=== PATIENT | female | born 1940 | race African-American/Black ===

== ENCOUNTER 2016-05-19 07:26 | Day surgery (SDC) | payer OTHER ==
[2016-05-18 13:06] VITALS: BMI 25.9
--- NOTE | 2016-05-19 06:32 | HP ---
History & Physical Update - History History: No Change - Physical Physical: No Change - Assessment Assessment: No Change - Plan Plan: No Change
[~2016-05-19 07:26] MED LIST: CYCLOPENTOLATE HCL 1% OPHTH SOLN 2 ML BOTTLE OP SCH; MOXIFLOXACIN HCL 0.5% OPHTHALMIC 3 ML BOTTLE OP SCH; PHENYLEPHRINE 2.5% OPHTH SOLN 15 ML BOTTLE OP SCH; TOBRA 0.3%/DEXAMETH 0.1% OPHTHALMIC SUSP 2.5 ML BTL TP ONE; TROPICAMIDE 1% OPHTH SOLN 15 ML BOTTLE OP SCH
[2016-05-19 07:44] VITALS: TEMP 98
[2016-05-19] MEDS ORDERED: MOXIFLOXACIN HCL 0.5% OPHTHALMIC 3 ML BOTTLE OS ONE ×3 (08:00→08:15)
[2016-05-19] MEDS ORDERED: TROPICAMIDE 1% OPHTH SOLN 15 ML BOTTLE OS ONE ×3 (08:00→08:15)
[2016-05-19] MEDS ORDERED: CYCLOPENTOLATE HCL 1% OPHTH SOLN 2 ML BOTTLE OS ONE ×3 (08:00→08:15)
[2016-05-19] MEDS ORDERED: PHENYLEPHRINE 2.5% OPHTH SOLN 15 ML BOTTLE OS ONE ×3 (08:00→08:15)
[2016-05-19] MEDS ORDERED: TETRACAINE 0.5% OPHTH SOLN 2 ML BOTTLE OS ONE (09:22)
[2016-05-19] MEDS ORDERED: MIDAZOLAM HCL 2 MG/2 ML SINGLE DOSE VIAL ONE (09:23)
[2016-05-19] MEDS ORDERED: POVIDONE-IODINE 5% OPHTHALMIC PREP 30 ML SOLUTION OS ONE (09:28)
[2016-05-19] MEDS ORDERED: BSS (NA/CA/MG/K) BALANCED SALT SOLUTION OPHTH SOLN 15 ML BOTTLE OS ONE (09:33)
[2016-05-19] MEDS ORDERED: TRYPAN BLUE 0.5 ML DISP.SYRIN IO ONE (09:33)
[2016-05-19] MEDS ORDERED: EPINEPHrine/PF 1 MG/1 ML (1:1,000) AMPULE SQ ONE (09:33)
[2016-05-19] MEDS ORDERED: LIDOCAINE HCL 1% PRESERVATIVE FREE - 30ML VIAL IO ONE (09:33)
[2016-05-19] MEDS ORDERED: CHONDROITIN SU A/HYALUR SOD 1 KIT IO ONE (09:33)
[2016-05-19] MEDS ORDERED: TOBRA 0.3%/DEXAMETH 0.1% OPHTHALMIC SUSP 2.5 ML BTL TP ONE (09:58)
[2016-05-19 11:08] VITALS: BP 128/66; PULSE 73
--- NOTE | 2016-05-19 14:19 | OP ---
DATE OF OPERATION: 05/19/2016 SURGEON: Pritesh Cespedes MD PREOPERATIVE DIAGNOSIS: Cataract left eye. OPERATION: Phacoemulsification intraocular lens implantation left eye. POSTOPERATIVE DIAGNOSIS: Cataract left eye. ANESTHESIA: Topical. COMPLICATIONS: None. BLOOD LOSS: None. SPECIMENS: None. BRIEF HISTORY: The patient is a 75-year-old woman with a past medical history of diabetes who presented with decreased vision in the left eye down to 20/30 due to a 2+ nuclear sclerotic lens with inferior cortical spokes. After the risks, benefits, and alternatives of cataract surgery were discussed with the patient, she consented to surgery for the left eye. DESCRIPTION OF PROCEDURE: The patient was brought to the operating room and prepped and draped in the usual sterile fashion, and the eyelid speculum was inserted in the left eye. The paracentesis made in the anterior chamber was inflated with nonpreserved lidocaine. This was followed by injection of air, Trypan blue dye and Viscoat. A groove was made in the supratemporal clear cornea, which was tunneled forward with a crescent blade. The anterior chamber was entered with a 2.75 keratome. Due to the poorly dilating pupil, down to 4mm, four iris hooks were placed around the pupil in order to enlarge it and stable it. The cystotome was used to make an incision in the center of the capsule, and a continuous curvilinear capsulorrhexis was created. The lens was hydrodissected until it was found to rotate freely within the capsular bag. Phacoemulsification was then used to remove the lens in its entirety. Irrigation and aspiration was used to remove residual cortical material. The anterior chamber and capsular bag were reinflated with Provisc, and a 20.0 diopter [id number] AcrySof intraocular lens was injected into the capsular bag using Nichols injector. The lens was dialed into place using a Sinskey hook. The irrigation and aspiration was used to remove residual viscoelastic. The wound was stromally hydrated until it was found to be watertight and the iris was at an appropriate pressure. The 4 previously placed iris hooks were removed without incident. The wound was rechecked and found to be watertight, and the eye was under appropriate pressure. The eyelid speculum was removed from the eye, and Tobradex drops and a clear shield were placed over the left eye. The patient was transferred to the recovery room in stable condition and will follow up tomorrow. PRITESH CESPEDES M.D. [id number] MTDD
== END 2016-05-19 11:05 | disposition home or self-care (01) ==
LOC: JASU-SURG 07:26
PROVIDERS: ATTEND Ophthalmology
PROC: 08RK3JZ Replacement of Left Lens with Synthetic Substitute, Percutaneous Approach (ICD-10-PCS; principal; 2016-05-19 10:00)
DX: H25.12 Age-related nuclear cataract, left eye (principal); H57.04 Mydriasis

== ENCOUNTER 2016-08-18 07:38 | Day surgery (SDC) | payer OTHER ==
[2016-08-14 13:36] VITALS: BMI 25.0
--- NOTE | 2016-08-18 06:09 | HP ---
History & Physical Update - History History: No Change - Physical Physical: No Change - Assessment Assessment: No Change - Plan Plan: No Change
[~2016-08-18 07:38] MED LIST changes: +CHONDROITIN SU A/HYALUR SOD 1 KIT IO ONE; -CYCLOPENTOLATE HCL 1% OPHTH SOLN 2 ML BOTTLE OP SCH; +LIDOCAINE HCL 1% PRESERVATIVE FREE - 30ML VIAL IO ONE; -MOXIFLOXACIN HCL 0.5% OPHTHALMIC 3 ML BOTTLE OP SCH; -PHENYLEPHRINE 2.5% OPHTH SOLN 15 ML BOTTLE OP SCH; +TETRACAINE 0.5% OPHTH SOLN 2 ML BOTTLE TP ONE; -TROPICAMIDE 1% OPHTH SOLN 15 ML BOTTLE OP SCH
[2016-08-18] MEDS ORDERED: CYCLOPENTOLATE HCL 1% OPHTH SOLN 2 ML BOTTLE ONE (07:47)
[2016-08-18] MEDS ORDERED: MOXIFLOXACIN HCL 0.5% OPHTHALMIC 3 ML BOTTLE ONE (07:47)
[2016-08-18] MEDS ORDERED: TROPICAMIDE 1% OPHTH SOLN 15 ML BOTTLE ONE (07:47)
[2016-08-18] MEDS ORDERED: PHENYLEPHRINE 2.5% OPHTH SOLN 15 ML BOTTLE ONE (07:47)
[2016-08-18 07:52] VITALS: TEMP 98.3
[2016-08-18] MEDS: CYCLOPENTOLATE HCL 1% OPHTH SOLN 2 ML BOTTLE OP SCH ×2 (08:00→08:14)
[2016-08-18] MEDS: MOXIFLOXACIN HCL 0.5% OPHTHALMIC 3 ML BOTTLE OP SCH ×2 (08:00→08:14)
[2016-08-18] MEDS: TROPICAMIDE 1% OPHTH SOLN 15 ML BOTTLE OP SCH ×2 (08:00→08:14)
[2016-08-18] MEDS: PHENYLEPHRINE 2.5% OPHTH SOLN 15 ML BOTTLE OP SCH ×2 (08:00→08:14)
[2016-08-18] MEDS ORDERED: MIDAZOLAM HCL 2 MG/2 ML SINGLE DOSE VIAL ONE (08:55)
[2016-08-18] MEDS ORDERED: TETRACAINE 0.5% OPHTH SOLN 2 ML BOTTLE TP ONE (09:02)
[2016-08-18] MEDS ORDERED: LIDOCAINE HCL 1% PRESERVATIVE FREE - 30ML VIAL IO ONE (09:12)
[2016-08-18] MEDS ORDERED: CHONDROITIN SU A/HYALUR SOD 1 KIT IO ONE (09:13)
[2016-08-18] MEDS ORDERED: TOBRA 0.3%/DEXAMETH 0.1% OPHTHALMIC SUSP 2.5 ML BTL TP ONE (09:40)
[2016-08-18 10:37] VITALS: BP 130/70; PULSE 60
--- NOTE | 2016-08-18 21:33 | OP ---
DATE OF OPERATION: 08/18/2016 SURGEON: Pritesh Agarwal MD PREOPERATIVE DIAGNOSIS: Cataract, right eye. OPERATION: Phacoemulsification and intraocular lens implantation, right eye. POSTOPERATIVE DIAGNOSIS: Cataract, right eye. ANESTHESIA: Topical. COMPLICATIONS: None. BLOOD LOSS: None. SPECIMEN: None. BRIEF HISTORY: The patient is a 76-year-old woman with a past medical history of diabetes, who presented with decreased vision in the right eye down to 20/30-minus due to a 2+ nuclear sclerotic lens and inferior cortical spokes. After the risks, benefits and alternatives to cataract surgery were discussed with the patient, she consented to the surgery for the right eye. DESCRIPTION: The patient was brought to the operating room and prepped and draped in the usual sterile fashion, and an eyelid speculum was inserted in the right eye. A paracentesis was made, and the anterior chamber was inflated with nonpreserved lidocaine. This was followed by injection of Viscoat. A groove was made in the temporal clear cornea, which was tunneled forward with a crescent blade. The anterior chamber was entered with a 2.75 keratome. The cystotome was used to make an incision in the center of the capsule, and a continuous curvilinear capsulorrhexis was created; however, at this point it was noted that there was iris prolapse and constriction of the pupil down to 4 mm. At this point, 4 iris hooks were placed around the pupil in order to enlarge and stabilize it. The lens was then hydrodissected until it was found to rotate freely in the capsular bag. Phacoemulsification was then used to remove the lens in its entirety. Irrigation and aspiration was used to remove residual cortical material. The anterior chamber and capsular bag were reinflated with ProVisc, and a 21.0 diopter [id number] AcrySof intraocular lens was injected into the capsular bag using the [place] injector. The lens was dialed into place using the Sinskey hook. Irrigation and aspiration was used to remove residual viscoelastic. The wound was stromally hydrated until it was found to be watertight. The 4 previously placed iris hooks were removed from the eye without incident. The wound was rechecked and found to be watertight and the eye was in an appropriate pressure. The eyelid speculum was removed from the eye, and TobraDex drops and a clear shield were placed over the right eye. The patient was transferred to the recovery room in stable condition and will follow up tomorrow. Ana [id number]
== END 2016-08-18 10:30 | disposition home or self-care (01) ==
LOC: JASU-SURG 07:38
PROVIDERS: ATTEND Ophthalmology
PROC: 08RJ3JZ Replacement of Right Lens with Synthetic Substitute, Percutaneous Approach (ICD-10-PCS; principal; 2016-08-18 09:00)
DX: H25.11 Age-related nuclear cataract, right eye (principal); E11.9 Type 2 diabetes mellitus without complications; H21.89 Other specified disorders of iris and ciliary body

== ENCOUNTER 2016-12-08 07:31 | Emergency (ER) | payer OTHER ==
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
[2016-12-08 07:54] VITALS: TEMP 97.4; BMI 25.6
[2016-12-08] MEDS ORDERED: NAPROXEN 500 MG TABLET (FP) PO ONE (08:10)
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
[2016-12-08] MEDS ORDERED: NAPROXEN 500 MG TABLET (FP) ONE (08:32)
[2016-12-08 13:07] VITALS: BP 142/76; PULSE 68
== END 2016-12-08 10:40 | disposition home or self-care (01) ==
LOC: JER 07:31
DX: S16.1XXA Strain of muscle, fascia and tendon at neck level, initial encounter (principal); I10 Essential (primary) hypertension; Z79.4 Long term (current) use of insulin; Z79.84 Long term (current) use of oral hypoglycemic drugs; E78.00 Pure hypercholesterolemia, unspecified; F41.9 Anxiety disorder, unspecified; F41.8 Other specified anxiety disorders; F17.210 Nicotine dependence, cigarettes, uncomplicated; V73.5XXA Driver of bus injured in collision with car, pick-up truck or van in traffic accident, initial encounter; Y92.414 Local residential or business street as the place of occurrence of the external cause; Y93.89 Activity, other specified; Y99.8 Other external cause status
CPT/HCPCS: 70450-TC; 72125-TC; 99281-25

== ENCOUNTER 2018-03-15 10:47 | Day surgery (SDC) | payer OTHER ==
[2018-03-15 11:32] VITALS: BMI 23.9
[2018-03-15] MEDS ORDERED: TETRACAINE/BENZOCAINE/BUTAMBEN 20 GM SPR TP ONE (11:39)
[2018-03-15 13:43] VITALS: BP 138/66; PULSE 66; TEMP 98.3
--- NOTE | 2018-03-16 16:41 | PATH ---
Surgical Pathology Report Patient Name: SILVIA PINA [facility]. Rec. #: [id number] /Age/Gender: 1940 (Age: 77) / F Account: [id number] Location: U-ENDOSCOPY Taken: 03/14/2018 Received: 03/15/2018 Reported: 03/16/2018 Physicians: Beck Kitchen D.O. Specimen(s) Received A: DUODENAL BULB BX B: BX ANTRUM C: BX CARDIA D: BX GE JUNCTION Clinical History Abdominal pain and diarrhea Postoperative diagnosis: Antral erosion, gastritis Final Diagnosis A. DUODENAL BULB BIOPSY: DUODENAL MUCOSA WITH CHRONIC DUODENITIS. B. ANTRUM, BIOPSY: GASTRIC MUCOSA WITH REACTIVE GASTROPATHY AND FOCALLY INCREASED EOSINOPHILIC INFILTRATE IN THE LAMINA PROPRIA. IMMUNOSTAIN FOR H. PYLORI IS NEGATIVE. NEGATIVE FOR INTESTINAL METAPLASIA. C. CARDIA BIOPSY: GASTRIC MUCOSA WITH MILD CHRONIC INFLAMMATION, FOCAL DILATED GLANDS, AND FOVEOLAR HYPERPLASTIC CHANGE. IMMUNOSTAIN FOR H. PYLORI IS NEGATIVE. NEGATIVE FOR INTESTINAL METAPLASIA D. GE JUNCTION, BIOPSY: GASTROESOPHAGEAL JUNCTIONAL MUCOSA WITH REFLUX ESOPHAGITIS. NEGATIVE FOR INTESTINAL METAPLASIA Electronically Signed Vicki Tuttle M.D. Gross Description A. Received in formalin, labeled "duodenal bulb biopsy" is a rivera, irregular portion of soft tissue measuring 0.3 cm. in greatest dimension. The specimen is submitted in toto in one cassette. B. Received in formalin, labeled "antrum biopsy" are 2 rivera, irregular portions of soft tissue averaging 0.4 cm. in greatest dimension. The specimens are submitted in toto in one cassette. C. Received in formalin, labeled "cardia biopsy nodule" are 2 rivera, irregular portions of soft tissue averaging 0.4 cm. in greatest dimension. The specimens are submitted in toto in one cassette. D. Received in formalin, labeled "GE junction biopsy" are 3 rivera, irregular portions of soft tissue ranging from 0.1-0.4 cm. in greatest dimension. The specimens are submitted in toto in one cassette. 03/15/201803/15/2018
== END 2018-03-15 13:15 | disposition home or self-care (01) ==
LOC: JASU-ENDO 10:47
PROVIDERS: ATTEND Internal Medicine Gastroenterology
PROC: 0DB68ZX Excision of Stomach, Via Natural or Artificial Opening Endoscopic, Diagnostic (ICD-10-PCS; 2018-03-15)
PROC: 0DB58ZX Excision of Esophagus, Via Natural or Artificial Opening Endoscopic, Diagnostic (ICD-10-PCS; 2018-03-15)
PROC: 0DB98ZX Excision of Duodenum, Via Natural or Artificial Opening Endoscopic, Diagnostic (ICD-10-PCS; principal; 2018-03-15 11:15)
DX: K25.9 Gastric ulcer, unspecified as acute or chronic, without hemorrhage or perforation (principal); K21.9 Gastro-esophageal reflux disease without esophagitis; K29.80 Duodenitis without bleeding
CPT/HCPCS: 82962; 88305-TC; 88342-TC

== ENCOUNTER 2018-05-19 13:44 | Emergency (ER) | payer OTHER ==
[2018-05-19 14:00] VITALS: BP 139/74; PULSE 85; TEMP 98.2; BMI 25.2
[2018-05-19 14:54] LABS: ALBUMIN 4.2 g/dl (3.4-5.0); ALK PHOS 82 U/L (45-117); ANION GAP 7 MMOL/L (8-16); BILIRUBIN,TOTAL 1.6 mg/dl (0.2-1); BLOOD UREA NITROGEN 15 mg/dl (7-18); CALCIUM 9.8 mg/dl (8.5-10); CHLORIDE 102 mmol/L (98-107); CO2 29 mmol/L (21-32); CREATININE 0.7 mg/dl (0.55-1.3); GLUCOSE,RANDOM 226 mg/dl (74-106); POTASSIUM 3.2 mmol/L (3.5-5.1); SGOT/AST 14 U/L (15-37); SGPT/ALT 13 U/L (13-61); SODIUM 138 mmol/L (136-145); TOT PROT 6.9 g/dl (6.4-8.2)
--- NOTE | 2018-05-19 14:57 | PDOC ---
History of Present Illness <Avelino Breauxfaele - Last Filed: 05/19/18 15:25> - General History Source: Patient Exam Limitations: No Limitations - History of Present Illness Initial Comments: 05/19/18 15:17 The patient is a 77-year-old female with a past medical history significant for HTN, HLD, anxiety, and DM presents to the emergency department with diarrhea with fecal incontinence secondary to DM medication. The patient reports a long- standing history of DM, for which she was placed on Metformin and glipizide. The patient reports blood sugar improvement with the medications; however, she developed diarrheal fecal incontinence. The patient reports following up with PCP about 2-4 months ago, who suggested it was secondary to the medication. The patient was then switched over to insulin and discontinued metformin and glipizide. The patient reports insulin wasnt as helpful with lower her blood sugar, reported following up with PCP about 2 days ago, who started her back on metformin and glipizide. The patient reports being compliant with the medication since yesterday morning since then she states she hasnt been good, and reports having episodes of diarrheal fecal incontinence. The patient reports her sugar level was 500 yesterday and earlier today 400. The patient reports being compliant with insulin, metformin, and glipizide today. The patient reports associated symptoms of increased thirst, denies nausea, vomiting , abdominal pain, dysuria, hematuria, frequency or urgency to urinate. Denies fever, chills or LOC. The patient reports she had an episode of a panic attack today, and reports taking a valium. Allergies: penicillins Social history: Current everyday smoker, Denies the use of alcohol or drugs. Surgical history: Cholecystectomy and Left knee arthroscopy, B/L rotator cuff. PCP: Dr. yana Corcoran. <Rosa Morales - Last Filed: 05/19/18 15:37> - General Chief Complaint: Blood Sugar Problem Stated Complaint: HIGH BLOOD SUGAR Time Seen by Provider: 05/19/18 13:50 Past History - Past Medical History Anemia: No Asthma: No Cancer: No Cardiac Disorders: No CVA: No COPD: No CHF: No Dementia: No Diabetes: Yes GI Disorders: Yes (DUODENAL POLYP, SHALLOW ULCERATIONS) Disorders: No HTN: Yes Hypercholesterolemia: Yes Liver Disease: No Psychiatric Problems: Yes (PANIC DISORDER) Seizures: No Thyroid Disease: No - Surgical History Abdominal Surgery: Yes Appendectomy: No Cardiac Surgery: No Cholecystectomy: Yes Lung Surgery: No Neurologic Surgery: No Orthopedic Surgery: Yes (LEFT KNEE ARTHROSCOPY, BILAT ROTATOR CUFF) - Suicide/Smoking/Psychosocial Hx Smoking Status: No Smoking History: Current every day smoker Have you smoked in the past 12 months: Yes Number of Cigarettes Smoked Daily: 8 Information on smoking cessation initiated: Yes 'Breaking Loose' booklet given: 03/15/18 Hx Alcohol Use: No Drug/Substance Use Hx: No Substance Use Type: Alcohol Hx Substance Use Treatment: No <Alen Breaux - Last Filed: 05/19/18 15:25> <Rosa Morales - Last Filed: 05/19/18 15:37> - Past Medical History Allergies/Adverse Reactions: Allergies Allergy/AdvReac Type Severity Reaction Status Date / Time Penicillins Allergy "RASH" Verified 05/19/18 13:46 Home Medications: Ambulatory Orders Atorvastatin Calcium [Lipitor] 10 mg PO DAILY 02/08/12 Insulin (Levemir) [Levemir Vial] 20 unit SQ BID 09/11/15 Diazepam [Valium] 10 mg PO TID PRN 03/14/18 Atenolol [Tenormin] 50 mg PO DAILY 03/15/18 Glipizide 5 mg PO BID 05/19/18 Review of Systems - Review of Systems Constitutional: No: Chills, Fever, Night Sweats, Unintentional Wgt. Loss HEENTM: No: Recent change in vision Respiratory: No: Cough, Shortness of Breath Cardiac (ROS): No: Chest Pain, Edema, Syncope ABD/GI: Yes: Diarrhea. No: Constipated, Nausea, Vomiting : No: Dysuria, Frequency, Hematuria Endocrine: Yes: Increased Thirst. No: Unexplained Weight Gain, Unexplained Weight Loss All Other Systems: Reviewed and Negative <Alen Breaux - Last Filed: 05/19/18 15:25> *Physical Exam - Vital Signs Last Vital Signs Temp Pulse Resp BP Pulse Ox 98.2 F 85 18 139/74 97 05/19/18 13:44 05/19/18 13:44 05/19/18 13:44 05/19/18 13:44 05/19/18 13:44 <Alen Breaux - Last Filed: 05/19/18 15:25> - Vital Signs Last Vital Signs Temp Pulse Resp BP Pulse Ox 98.2 F 85 18 139/74 97 05/19/18 13:44 05/19/18 13:44 05/19/18 13:44 05/19/18 13:44 05/19/18 13:44 - Physical Exam Comments: 05/19/18 15:03 GENERAL: The patient is awake, alert, and fully oriented, in no acute distress. HEAD: Normal with no signs of trauma. EYES: Pupils equal, round and reactive to light, extraocular movements intact, sclera anicteric, conjunctiva clear with no pallor. ENT: Ears normal, nares patent, oropharynx clear without exudates. Moist mucous membranes. NECK: Normal range of motion, supple without lymphadenopathy, JVD, or masses. LUNGS: Breath sounds equal, clear to auscultation bilaterally. No wheeze/ crackles. HEART: Regular rate and rhythm, normal S1 and S2 without murmur or rub. ABDOMEN: Soft/nontender/nondistended. BS wnl. No guarding or rebound. No palpable masses. No hepatosplenomegaly. EXTREMITIES: Normal range of motion, no edema. No clubbing or cyanosis. No cords, erythema, or tenderness. NEUROLOGICAL: Cranial nerves II through XII grossly intact. Normal speech, normal gait. PSYCH: Normal mood, normal affect. SKIN: Warm, Dry, normal turgor, no rashes or lesions noted. <Rosa Morales - Last Filed: 05/19/18 15:37> Heart Score/ECG Review #1 ECG reviewed & interpreted by me at: 14:24 General ECG Interpretation: Sinus Rhythm, Normal Rate (66), Normal Intervals ( qtc 425), No acute ischemic changes <Alen Breaux - Last Filed: 05/19/18 15:25> ED Treatment Course - LABORATORY CBC & Chemistry Diagram: 05/19/18 14:25 05/19/18 14:25 - ADDITIONAL ORDERS Additional order review: Laboratory Results 05/19/18 05/19/18 14:20 14:18 POC Glucometer 211 Urine Color Shannon Urine Appearance Clear Urine pH 5.0 Urine Protein Negative Urine Glucose (UA) Negative Urine Ketones Trace Urine Blood Negative Urine Nitrite Negative Urine Bilirubin 1+ H Urine Urobilinogen 1.0 Ur Leukocyte Esterase Negative 05/19/18 14:18 POC Glucometer 211 <Alen Breaux - Last Filed: 05/19/18 15:25> - LABORATORY CBC & Chemistry Diagram: 05/19/18 14:25 05/19/18 14:25 - ADDITIONAL ORDERS Additional order review: Laboratory Results 05/19/18 05/19/18 05/19/18 14:25 14:20 14:18 Sodium 138 Potassium 3.2 L Chloride 102 Carbon Dioxide 29 Anion Gap 7 L BUN 15 Creatinine 0.7 Creat Clearance w eGFR 80.93 POC Glucometer 211 Random Glucose 226 H Calcium 9.8 Total Bilirubin 1.6 H AST 14 L ALT 13 Alkaline Phosphatase 82 Total Protein 6.9 Albumin 4.2 Urine Color Shannon Urine Appearance Clear Urine pH 5.0 Urine Protein Negative Urine Glucose (UA) Negative Urine Ketones Trace Urine Blood Negative Urine Nitrite Negative Urine Bilirubin 1+ H Urine Urobilinogen 1.0 Ur Leukocyte Esterase Negative 05/19/18 14:18 POC Glucometer 211 <Rosa Morales - Last Filed: 05/19/18 15:37> Medical Decision Making - Medical Decision Making 05/19/18 14:54 77-year-old female diabetic presents requesting medication regimen readjustment. Patient has long-standing history of diabetes, historically treated with metformin/glipizide/insulin combination, but noncompliant with her insulin in the past. Sustained side effects of fecal incontinence from metformin /glipizide and so began taking insulin only at the recommendation of her recruiting coordinator. Glucose was less optimally controlled, she saw Dr. Wilson, her PCP, 2 days ago and was instructed to restart metformin/glipizide. She began having fecal incontinence again yesterday, presents here for a new diabetes regimen. Patient did take her metformin/because this morning, her glucose was over 400, it is currently 211 in the emergency department. She states she has frequent thirst at baseline, denies any polyuria/abdominal pain/vomiting, reports the nonbloody diarrhea as noted. Vital signs are within normal limits Patient is well-appearing and ambulating in the emergency Department Abdominal exam is nonfocal She is well-hydrated without jaundice or pallor 77-year-old female presents here for recommendations on diabetes medications given persistent side effect profile. Well-appearing and hemodynamically stable without red flags on history or physical exam. Another component of the visit includes the patient's anxiety, she admits to having a panic attack earlier and taking Valium prior to arrival. Check electrolytes, give IV fluid hydration We'll need to discuss with Dr. Wilson regarding adjustments to medications, she has not been seen by an incubator operator in the past. 05/19/18 15:19 cbc normal. chem with glucose over 200 but normal AG 7, slight hypo-K 3.2 which was repleted. UA without ketones or infection. Received hydration, will discuss d/c plan with Dr. Corcoran. 05/19/18 15:[address] Corcoran, recommends d/c metformin but continue glipizide/ insulin as previously prescribed. he will see in office in 2 weeks to monitor glucose levels. Pt agrees with plan, understands return criteria. <Alen Breaux - Last Filed: 05/19/18 15:25> - Medical Decision Making 05/19/18 15:37 Phone call: Call placed to Dr. Andressa Corcoran at 3:20 pm. Case discussed with Dr. Andressa Corcoran at 3:24 pm. <Rosa Morales - Last Filed: 05/19/18 15:37> *DC/Admit/Observation/Transfer <Alen Breaux - Last Filed: 05/19/18 15:25> - Attestations Scribe Attestion: 05/19/18 15:04 Documentation prepared by Rosa Morales, acting as medical imaging specialist for Alen Breaux MD. <Rosa Morales - Last Filed: 05/19/18 15:37> Diagnosis at time of Disposition: Hyperglycemia - Discharge Dispostion Disposition: HOME Condition at time of disposition: Stable - Referrals Referrals: Yana Corcoran MD [Primary Care Provider] - - Patient Instructions Printed Discharge Instructions: DI for Hyperglycemia -- Adult Additional Instructions: Activity as tolerated. Stay hydrated. Blood tests, an EKG, and a urinalysis today showed no acute abnormalities other than a slightly elevated blood sugar level. Your Potassium was a little low, so we gave you a pill to replace it. We discussed your case with Dr. Corcoran, and the plan is to STOP THE METFORMIN BUT CONTINUE THE GLIPIZIDE AND LEVEMIR PREVIOUSLY PRESCRIBED. Continue your other medications as previously prescribed by your physician. You should follow up with your primary doctor in 1-2 weeks regarding today's emergency department visit and to check how your blood sugar is doing on the new regimen. You should also continue to check it daily yourself. Return to the emergency department for any new or concerning symptoms, particularly persistent vomiting or diarrhea, abdominal pain or fevers or chills , confusion or lightheadedness, uncontrollable blood glucose levels. - Post Discharge Activity
[2018-05-19] MEDS ORDERED: SODIUM CHLORIDE 1,000 ML IV ONE (14:59)
[2018-05-19 15:09] LABS: HEMATOCRIT 47.9 % (32.4-45.2); MCH 29.6 pg (25.7-33.7); MCHC 33.4 g/dl (32.0-36.0); MEAN CELL VOLUME 88.7 fl (80-96); MEAN PLT VOLUME 12.6 fl (7.5-11.1); PLATELET COUNT 202 K/MM3 (134-434); RDW 13.1 % (11.6-15.6); WHITE BLOOD COUNT 6.3 K/mm3 (4.0-10.8)
[2018-05-19 15:10] LABS: ADD RBC MORPHOLOGY YES
[2018-05-19] MEDS ORDERED: POTASSIUM CHLORIDE TABS 20 MEQ TABLET.ER (FP) PO ONE ×2 (15:18→15:24)
[2018-05-19 15:44] LABS: PLATELET ESTIMATE ADEQUATE
--- NOTE | 2018-05-20 10:11 | EKG ---
Test Reason : Blood Pressure : / mmHG Vent. Rate : 066 BPM Atrial Rate : 066 BPM P-R Int : 176 ms QRS Dur : 082 ms QT Int : 406 ms P-R-T Axes : 040 031 042 degrees QTc Int : 425 ms NORMAL SINUS RHYTHM POSSIBLE LEFT ATRIAL ENLARGEMENT BORDERLINE ECG WHEN COMPARED WITH ECG OF 24-JUL-2009 11:09, SINUS RHYTHM HAS REPLACED JUNCTIONAL RHYTHM Confirmed by STU KAPLAN, MARCELLO ([id number]) on 05/20/2018 10:10:59 AM Referred By: NIKKI GRUBER Confirmed By:MARCELLO PERAZA MD
== END 2018-05-19 16:05 | disposition home or self-care (01) ==
LOC: SUPCPDRO 13:44 → FER 13:44
PROC: 3E0337Z Introduction of Electrolytic and Water Balance Substance into Peripheral Vein, Percutaneous Approach (ICD-10-PCS; principal; 2018-05-19)
DX: E11.65 Type 2 diabetes mellitus with hyperglycemia (principal); I10 Essential (primary) hypertension; E78.5 Hyperlipidemia, unspecified; F41.9 Anxiety disorder, unspecified
CPT/HCPCS: 36415; 80053; 81003; 82962; 85025; 93005; 99285-25; J7030

== ENCOUNTER 2019-01-13 10:17 | Emergency (ER) | payer OTHER ==
[2019-01-13 10:31] VITALS: BP 139/74; PULSE 57; TEMP 97.9; BMI 25.2
[2019-01-13] MEDS ORDERED: METOCLOPRAMIDE HCL INJECTION 10 MG/2 ML VIAL IVPB ONE (10:45)
[2019-01-13] MEDS ORDERED: SODIUM CHLORIDE 0.9% 1000 ML INFUS.BAG IV ONE (10:45)
[2019-01-13] MEDS ORDERED: ACETAMINOPHEN 1000 MG/100 ML VIAL (NON FORMULARY) IVPB ONE (10:45)
[2019-01-13] MEDS ORDERED: ACETAMINOPHEN INJECTION 100 ML IVPB ONE (10:48)
[2019-01-13] MEDS ORDERED: METOCLOPRAMIDE HCL INJECTION 10 MG/2 ML VIAL ONE (10:48)
[2019-01-13 11:17] LABS: BASO % 0.9 % (0-2.0); EOS % 2.3 % (0-4.5); HEMATOCRIT 47.3 % (32.4-45.2); HEMOGLOBIN 15.8 GM/dl (10.7-15.3); LYMPH % 45.9 % (8-40); MCH 29.4 pg (25.7-33.7); MCHC 33.4 g/dl (32.0-36.0); MEAN PLT VOLUME 11.7 fl (7.5-11.1); NEUT % 44.9 % (42.8-82.8); PLATELET COUNT 240 K/MM3 (134-434); RBC 5.38 M/mm3 (3.60-5.2); RDW 13.1 % (11.6-15.6); WHITE BLOOD COUNT 7.1 K/mm3 (4.0-10.8)
[2019-01-13 11:24] LABS: ALBUMIN 3.9 g/dl (3.4-5.0); BILIRUBIN,TOTAL 1.7 mg/dl (0.2-1); CALCIUM 9.7 mg/dl (8.5-10); CREATININE 0.6 mg/dl (0.55-1.3); POTASSIUM 3.5 mmol/L (3.5-5.1); TOT PROT 6.8 g/dl (6.4-8.2)
[2019-01-13 11:27] LABS: ADD RBC MORPHOLOGY YES
[2019-01-13 11:56] LABS: PLATELET ESTIMATE ADEQUATE
--- NOTE | 2019-01-13 12:04 | PDOC ---
History of Present Illness - General Chief Complaint: Respiratory Stated Complaint: HEADACHE COUGH Time Seen by Provider: 01/13/19 10:28 - History of Present Illness Initial Comments: 01/13/19 12:59 Vitals: Triage Vital signs reviewed General Appearance: No acute distress, well nourished well developed, Head: Atraumatic, Eyes: Pupils equal reactive round, extraocular movement intact Ears: TM's normal bilaterally; Nose: Nares patent bilaterally; no nasal congestion Throat: Posterior oropharynx without erythema, mucous membranes moist, Neck: Supple; no Nucal rigidity Chest Wall: Nontender Cardiac: Regular rate and rhythym, no murmurs, no rubs, no gallops, Lungs: Clear to auscultation bilateral, good air movement bilaterally, Abdomen: Soft, non distended, normal bowel sounds, non tender to palpation Extremities: Full range of motion to all extremities, no cyanosis, clubbing, or edema Skin: Warm and dry, no rashes or lesions, no rash, no petechiae Neuro: AOX3; cranial Nerves 2-12 grossly intact, strength intact to all extremities, sensation intact to all extremities, gait normal Psych: Normal mood, normal affect Past History - Past Medical History Allergies/Adverse Reactions: Allergies Allergy/AdvReac Type Severity Reaction Status Date / Time Penicillins Allergy "RASH" Verified 01/13/19 10:20 Home Medications: Ambulatory Orders Atorvastatin Calcium [Lipitor] 10 mg PO DAILY 02/08/12 Insulin (Levemir) [Levemir Vial] 24 unit SQ AM 09/11/15 Diazepam [Valium] 10 mg PO TID PRN 03/14/18 Atenolol/Chlorthalidone [Atenolol-Chlorthalidone 50-25] 1 each PO DAILY Insulin Detemir [Levemir Flextouch] 10 unit SQ HS 01/13/19 Anemia: No Asthma: No Cancer: No Cardiac Disorders: No CVA: No COPD: No CHF: No Dementia: No Diabetes: Yes GI Disorders: Yes (DUODENAL POLYP, SHALLOW ULCERATIONS) Disorders: No HTN: Yes Hypercholesterolemia: Yes Liver Disease: No Psychiatric Problems: Yes (PANIC DISORDER) Seizures: No Thyroid Disease: No - Surgical History Abdominal Surgery: Yes Appendectomy: No Cardiac Surgery: No Cholecystectomy: Yes Lung Surgery: No Neurologic Surgery: No Orthopedic Surgery: Yes (LEFT KNEE ARTHROSCOPY, BILAT ROTATOR CUFF) - Psycho Social/Smoking Cessation Hx Smoking Status: No Smoking History: Never smoked Have you smoked in the past 12 months: No Number of Cigarettes Smoked Daily: 8 Information on smoking cessation initiated: No 'Breaking Loose' booklet given: 05/19/18 Hx Alcohol Use: No Drug/Substance Use Hx: No Substance Use Type: Alcohol Hx Substance Use Treatment: No *Physical Exam - Vital Signs Last Vital Signs Temp Pulse Resp BP Pulse Ox 97.9 F 57 L 18 139/74 100 01/13/19 10:17 01/13/19 10:17 01/13/19 10:17 01/13/19 10:17 01/13/19 10:17 ED Treatment Course - LABORATORY CBC & Chemistry Diagram: 01/13/19 11:00 01/13/19 11:00 - ADDITIONAL ORDERS Additional order review: Laboratory Results 01/13/19 11:00 Sodium 135 L Potassium 3.5 Chloride 100 Carbon Dioxide 30 Anion Gap 5 L BUN 12.0 Creatinine 0.6 Est GFR (CKD-EPI)AfAm 100.48 Est GFR (CKD-EPI)NonAf 86.69 Random Glucose 193 H Calcium 9.7 Total Bilirubin 1.7 H AST 13 L ALT 13 Alkaline Phosphatase 73 Total Protein 6.8 Albumin 3.9 01/13/19 11:00 RBC 5.38 H MCV 88.0 MCHC 33.4 RDW 13.1 MPV 11.7 H Neutrophils % 44.9 Lymphocytes % 45.9 H Monocytes % 6.0 Eosinophils % 2.3 Basophils % 0.9 - RADIOLOGY Radiology Studies Ordered: Category Date Time Status HEAD CT WITHOUT CONTRAST [CT] Stat CT Scan 01/13/19 11:33 Ordered CHEST PA & LAT [RAD] Stat Radiology 01/13/19 10:46 Ordered - Medications Given in the ED: ED Medications Discontinued Medications Generic Name Dose Route Start Last Admin Trade Name Freq PRN Reason Stop Dose Admin Acetaminophen 1,000 mg 01/13/19 10:45 01/13/19 10:50 Ofirmev Injection - IVPB 01/13/19 10:46 1,000 mg ONCE ONE Administration Diphenhydramine HCl 25 mg 01/13/19 10:45 01/13/19 11:25 Benadryl Injection - IVPB 01/13/19 10:46 25 mg ONCE ONE Administration Metoclopramide HCl 10 mg 01/13/19 10:45 01/13/19 11:32 Reglan Injection - IVPB 01/13/19 10:46 10 mg ONCE ONE Administration Sodium Chloride 500 ml 01/13/19 10:45 01/13/19 10:45 Normal Saline - IV 01/13/19 10:46 500 ml ONCE ONE Administration Medical Decision Making - Medical Decision Making 01/13/19 13:02 Well-appearing no apparent distress with mild headache intermittent with associated mild hearing loss Patient able to carry on normal conversation grossly hearing is intact to both soft sounds on both sides equally There are no red flags on her headache history however given the combination of headache with the hearing symptomatology we will order a noncontrast head CT treat symptomatically her headache check labs and a chest x-ray Reevaluation 1 PM patient feels much better head CT with no acute pathology her laboratory analysis is unremarkable She will follow-up with her ENT doctor this week she will return to ED for any severe worsening symptoms or for any concerns. Discharge - Discharge Information Problems reviewed: Yes Clinical Impression/Diagnosis: Headache Qualifiers: Headache type: unspecified Headache chronicity pattern: episodic headache Intractability: not intractable Qualified Code(s): R51 - Headache Condition: Stable Disposition: HOME - Admission No - Follow up/Referral Referrals: Riley Jessica MD [Staff Physician] - - Patient Discharge Instructions Patient Printed Discharge Instructions: DI for Headache Additional Instructions: Follow-up with your ENT or Dr. Jessica this week. Return to the emergency department for any severe worsening symptoms or for any concerns. - Post Discharge Activity
== END 2019-01-13 13:30 | disposition home or self-care (01) ==
LOC: FER 10:17
PROC: 3E033NZ Introduction of Analgesics, Hypnotics, Sedatives into Peripheral Vein, Percutaneous Approach (ICD-10-PCS; principal; 2019-01-13)
PROC: 3E033GC Introduction of Other Therapeutic Substance into Peripheral Vein, Percutaneous Approach (ICD-10-PCS; 2019-01-13)
DX: R51 Headache (principal); Z88.0 Allergy status to penicillin; Z87.891 Personal history of nicotine dependence; F41.0 Panic disorder [episodic paroxysmal anxiety]; E11.9 Type 2 diabetes mellitus without complications; K92.9 Disease of digestive system, unspecified; I10 Essential (primary) hypertension; E78.00 Pure hypercholesterolemia, unspecified
CPT/HCPCS: 36415; 70450-TC; 71046-TC-FY; 80053; 85025; 99284-25; J0131; J7030

== ENCOUNTER 2019-02-19 14:46 | Emergency (ER) | payer OTHER ==
--- NOTE | 2019-02-19 15:12 | PDOC ---
History of Present Illness - General Stated Complaint: DIZZINESS Time Seen by Provider: 02/19/19 15:10 Past History - Past Medical History Allergies/Adverse Reactions: Allergies Allergy/AdvReac Type Severity Reaction Status Date / Time Penicillins Allergy "RASH" Verified 02/19/19 15:14 Home Medications: Ambulatory Orders Atorvastatin Calcium [Lipitor] 10 mg PO DAILY 02/08/12 Insulin (Levemir) [Levemir Vial] 20 unit SQ AM 09/11/15 Diazepam [Valium] 10 mg PO TID PRN 03/14/18 Atenolol/Chlorthalidone [Atenolol-Chlorthalidone 50-25] 1 each PO DAILY Anemia: No Asthma: No Cancer: No Cardiac Disorders: No CVA: No COPD: No CHF: No Dementia: No Diabetes: Yes GI Disorders: Yes (DUODENAL POLYP, SHALLOW ULCERATIONS) Disorders: No HTN: Yes Hypercholesterolemia: Yes Liver Disease: No Psychiatric Problems: Yes (PANIC DISORDER) Seizures: No Thyroid Disease: No - Surgical History Abdominal Surgery: Yes Appendectomy: No Cardiac Surgery: No Cholecystectomy: Yes Lung Surgery: No Neurologic Surgery: No Orthopedic Surgery: Yes (LEFT KNEE ARTHROSCOPY, BILAT ROTATOR CUFF) - Psycho Social/Smoking Cessation Hx Smoking Status: No Smoking History: Never smoked Have you smoked in the past 12 months: No Number of Cigarettes Smoked Daily: 8 'Breaking Loose' booklet given: 05/19/18 Hx Alcohol Use: No Drug/Substance Use Hx: No Substance Use Type: Alcohol Hx Substance Use Treatment: No ED Treatment Course - LABORATORY CBC & Chemistry Diagram: 02/19/19 15:52 02/19/19 15:52 Medical Decision Making - Medical Decision Making 02/19/19 15:38 HPI: Denies fever, chills, fatigue, headache, dizziness, numbness/tingling, weakness , vision changes, shortness of breath, cough, chest pain, palpitations, leg swelling, abdominal pain, blood in stool, diarrhea, constipation, nausea, vomiting, dysuria, hematuria, confusion. ROS: Constitutional: Negative for chills, fever, fatigue, diaphoresis. HENT: Negative for sore throat, rhinorrhea, congestion. Eyes: Negative for visual disturbance. Respiratory: Negative for shortness of breath, cough, and wheezing. Cardiovascular: Negative for chest pain, palpitations, and leg swelling. Gastrointestinal: Negative for abdominal pain, blood in stool, constipation, diarrhea, nausea, and vomiting. Genitourinary: Negative for dysuria, flank pain, and hematuria. Musculoskeletal: Negative for myalgias, back pain, and neck pain. Skin: Negative for rash. Neurological: Positive for funny feeling in head. Negative for light-headedness , dizziness, vertigo, syncope, weakness, numbness and headaches. Psychiatric/Behavioral: Positive for nervousness and panic attacks. Negative for behavioral problems and confusion. PE: Gen: Alert, NAD, comfortable-appearing. HEENT: PERRL, EOMI, MMM, NCAT. No conjunctival pallor. Sclera are non-icteric. Oropharynx is clear. CV: Regular rate and rhythm. No murmurs, rubs, or gallops. PULM: No resp distress. CTAB, no wheezes, rales, or rhonchi. ABD: soft, NT/ND, no rebound tenderness or guarding, no CVA tenderness. BACK: No TTP of c/t/l-spine. No step-offs or deformities. MSK: No bony deformities. 2+ pulses in all extremities. NEURO: AAOx3. PERRL. CN 2-12 intact. 5/5 strength in all extremities. Sensation to light touch intact in all extremities. EXTREMITIES: No cyanosis. No clubbing. No edema. No calf tenderness. PSYCH: Normal mood and thought pattern. SKIN: Warm and dry. Normal capillary refill. No rashes. No jaundice. MDM: 78yo F hx T2DM (only on Levemir 24U in AM and 10U in PM), Hemodynamically stable, afebrile, neurologically intact, unremarkable physical exam. Ddx: most likely hyperglycemia and anxiety, both resolved. Rule out DKA and end- organ damage. Also consider metabolic derangement, anemia, or infection. -EKG -CBC,CMP,Mg,Phos,beta-hydroxybutarate,VBG,UA/UC -Hydrate - pt refuses IVF, orally hydrating -Dispo: likely d/c home pending w/u 02/19/19 16:36 Labs reviewed. No concerning findings EKG reviewed: NSR, 69bpm, normal intervals, normal axis, no e/o acute ischemia Pt remains asymptomatic throughout ED visit. Has drank large cup of water. Safe for d/c. Will dc home with PCP f/u. Return precautions given. Pt understands all dc instructions and all questions were answered. Discharge - Discharge Information Problems reviewed: Yes Clinical Impression/Diagnosis: Hyperglycemia Condition: Improved Disposition: HOME - Admission No - Follow up/Referral Referrals: Melanie Corcoran MD [Primary Care Provider] - - Patient Discharge Instructions Patient Printed Discharge Instructions: DI for Hyperglycemia -- Adult Additional Instructions: You have been seen for your high sugar (glucose) level. It came down here. You are feeling better. Stay hydrated and take your medications as prescribed. Follow-up with your primary care doctor within 1 week. Call their office in the morning to set up an appointment. Return to the Emergency Department immediately with any new or concerning symptoms including passing out, chest pain, or difficulty breathing. - Post Discharge Activity
[2019-02-19 15:29] VITALS: BP 136/79; PULSE 74; TEMP 97.9; BMI 25.0
--- NOTE | 2019-02-19 15:30 | PDOC ---
Documentation entered by Ivan Sexton SCRIBE, acting as scribe for Umm Mazariegos DO. Umm Mazariegos DO: This documentation has been prepared by the Darshan buck Daniel, SCRIBE, under my direction and personally reviewed by me in its entirety. I confirm that the documentation accurately reflects all work, treatment, procedures, and medical decision making performed by me. Attending Attestation - Resident Resident Name: Anika Benjamin - ED Attending Attestation I have performed the following: I have examined & evaluated the patient, The case was reviewed & discussed with the resident, I agree w/resident's findings & plan, Exceptions are as noted - HPI HPI: 02/19/19 15:38 The patient is a 78 year old female with a past medical history of HTN, HLD, anxiety, and diabetes here today for evaluation of funny feeling in head. The patient reports that she did not take her morning dose of insulin and developed a funny feeling in her head. She states that it is not a headache, lightheadedness, or dizziness but is unable to specify what it is. She reports that she checked her blood sugar and it was 505. Patient denies headache, lightheadedness. Denies fever, chills. Denies chest pain, shortness of breath. Denies nausea, vomiting, diarrhea, abdominal pain. Allergies: penicillins PCP: Melanie Corcoran - Physicial Exam PE: 02/19/19 15:54 Constitutional: Awake, alert, oriented. No acute distress. Head: Normocephalic. Atraumatic Eyes: PERRL. EOMI. Conjunctivae are not pale. ENT: Mucous membranes are moist and intact. Posterior pharynx without exudates or erythema. Uvula midline. Neck: Supple. Full ROM. No lymphadenopathy. Cardiovascular: Regular rate. Regular rhythm. S1, S2 regular. Distal pulses are 2+ and symmetric. Pulmonary/Chest: No evidence of respiratory distress. Clear to auscultation bilaterally No wheezing, rales or rhonchi. Abdominal: Soft and non-distended. There is no tenderness. No rebound, guarding or rigidity. No organomegaly. No palpable masses. Good bowel sounds. Back: No CVA tenderness. Musculoskeletal: No edema. No cyanosis. No clubbing. Full range of motion in all extremities. No calf tenderness. Radial/pedal pulses are intact and 2+ bilaterally Skin: Skin is warm and dry. No petechiae. No purpura. Neurological: Alert and oriented to person, place, and time. Cranial nerves II -XII are grossly intact. Normal speech. Strength is grossly symmetric and 5/5. No sensory deficits. Normal gait. Psychiatric: Good eye contact. Normal interaction, affect and behavior. - Medical Decision Making 02/19/19 15:28 I, Dr. Umm Mazariegos, DO, attest that this document has been prepared under my direction and personally reviewed by me in its entirety. I further attest, that it accurately reflects all work, treatment, procedures and medical decision -making performed by me. 02/19/19 15:41 a/p: 78yo female with elevated glucose today. -pt states she went food shopping, took a nap and forgot her insulin -pt takes levemir bid -pt states she forgot her levemir this am- 24 units -when she woke up from her nap she took her glucose because her head felt funny - glu was >500, she got nervous, took her am insulin and then drank water, she waited 30 min and then took her nighttime 10 units -pt states now all her symptoms of "nervous feeling in her head" have resolved -pt denies all somatic complaints -pt is DM II -will send labs, po water intake -will monitor and reassess -pt is nontoxic in appearance 02/19/19 16:36 labs reviewed pt stable for dc to home no dka Heart Score/ECG Review - ECG Intrepretation Comment:: 02/19/19 15:28 sinus at 69, nl axis, nl interval, no acute st/t wave findings
[2019-02-19 15:50] LABS: PH,URINE 6.5 (5.0-8.0); URINE APPEARANCE CLEAR; URINE BILIRUBIN NEGATIVE (NEGATIVE); URINE COLOR YELLOW; URINE GLUCOSE (UA) 3+ (NEGATIVE); URINE KETONE NEGATIVE (NEGATIVE); URINE LEUK ESTERASE NEGATIVE (NEGATIVE); URINE NITRITE NEGATIVE (NEGATIVE); URINE PROTEIN NEGATIVE (NEGATIVE)
[2019-02-19 15:55] LABS: VENOUS PH 7.42 (7.31-7.41)
[2019-02-19 15:56] LABS: VENOUS PO2 < 49 mmHg (28-48)
[2019-02-19 16:06] LABS: BASO % 0.9 % (0-2.0); EOS % 1.5 % (0-4.5); HEMATOCRIT 47.1 % (32.4-45.2); HEMOGLOBIN 15.9 GM/dL (10.7-15.3); LYMPH % 39.4 % (8-40); MCH 29.4 pg (25.7-33.7); MCHC 33.7 g/dl (32.0-36.0); MEAN CELL VOLUME 87.2 fl (80-96); MONO % 10.2 % (3.8-10.2); PLATELET COUNT 190 K/MM3 (134-434); RDW 14.2 % (11.6-15.6); WHITE BLOOD COUNT 6.7 K/mm3 (4.0-10.0)
[2019-02-19 16:31] LABS: ALBUMIN 3.7 g/dl (3.4-5.0); ALK PHOS 93 U/L (45-117); ANION GAP 8 MMOL/L (8-16); BLOOD UREA NITROGEN 13.5 mg/dL (7-18); CALCIUM 9.7 mg/dL (8.5-10.1); CHLORIDE 101 mmol/L (98-107); CO2 25 mmol/L (21-32); CREATININE 0.7 mg/dL (0.55-1.3); GLUCOSE,RANDOM 294 mg/dL (74-106); MAGNESIUM 2.1 mg/dL (1.8-2.4); PHOSPHOROUS 2.6 mg/dL (2.5-4.9); POTASSIUM 3.8 mmol/L (3.5-5.1); SGOT/AST 18 U/L (15-37); SGPT/ALT 31 U/L (13-61); SODIUM 134 mmol/L (136-145); TOT PROT 6.9 g/dl (6.4-8.2)
--- NOTE | 2019-02-20 09:44 | EKG ---
Test Reason : Blood Pressure : / mmHG Vent. Rate : 069 BPM Atrial Rate : 069 BPM P-R Int : 174 ms QRS Dur : 078 ms QT Int : 400 ms P-R-T Axes : 030 013 046 degrees QTc Int : 428 ms NORMAL SINUS RHYTHM NORMAL ECG WHEN COMPARED WITH ECG OF 19-MAY-2018 14:24, NO SIGNIFICANT CHANGE WAS FOUND Confirmed by CARITO WOODSON MD ([id number]) on 02/20/2019 9:43:36 AM Referred By: Confirmed By:CARITO WOODSON MD
== END 2019-02-19 16:46 | disposition home or self-care (01) ==
LOC: JER 14:46
DX: E11.65 Type 2 diabetes mellitus with hyperglycemia (principal); Z79.4 Long term (current) use of insulin; I10 Essential (primary) hypertension; E78.00 Pure hypercholesterolemia, unspecified; F41.9 Anxiety disorder, unspecified; Z87.19 Personal history of other diseases of the digestive system
CPT/HCPCS: 36415; 80053; 81003; 82010; 82550; 82803; 82962; 83735; 84100; 84484; 85025; 87086; 93005; 93010; 99284-25

== ENCOUNTER 2021-08-05 11:11 | Emergency (ER) | payer OTHER ==
[2021-08-05 11:30] VITALS: BMI 21.7
[2021-08-05] MEDS ORDERED: ACETAMINOPHEN 1000 MG/100 ML BAG IVPB ONE (12:26)
[2021-08-05] MEDS ORDERED: ACETAMINOPHEN INJECTION 100 ML IVPB ONE (13:17)
[2021-08-05 14:09] LABS: BASO % 0.9 % (0-2.0); EOS % 1.9 % (0-4.5); HEMATOCRIT 44.1 % (32.4-45.2); HEMOGLOBIN 15.6 GM/dL (10.7-15.3); LYMPH % 30.8 % (8-40); MCH 30.5 pg (25.7-33.7); MCHC 35.5 g/dl (32.0-36.0); MONO % 6.7 % (3.8-10.2); NEUT % 59.7 % (42.8-82.8); PLATELET COUNT 190 10^3/uL (134-434); RBC 5.13 M/mm3 (3.60-5.2); RDW 14.4 % (11.6-15.6); WHITE BLOOD COUNT 6.3 K/mm3 (4.0-10.0)
[2021-08-05 14:10] LABS: CHLORIDE 102 mmol/L (98-107); SODIUM 140 mmol/L (136-145)
[2021-08-05 14:12] LABS: ALBUMIN 3.7 g/dl (3.4-5.0); ANION GAP 8 MMOL/L (8-16); CALCIUM 9.9 mg/dL (8.5-10.1); CO2 30 mmol/L (21-32); MAGNESIUM 2.2 mg/dL (1.8-2.4)
[2021-08-05 14:13] LABS: BLOOD UREA NITROGEN 16.8 mg/dL (7-18)
[2021-08-05 14:15] LABS: CREATININE 0.8 mg/dL (0.55-1.3); SGOT/AST 26 U/L (15-37); SGPT/ALT 29 U/L (13-61)
[2021-08-05 14:16] LABS: PHOSPHOROUS 3.2 mg/dL (2.5-4.9)
[2021-08-05 14:17] LABS: BILIRUBIN,TOTAL 1.4 mg/dL (0.2-1)
[2021-08-05 14:18] LABS: ALK PHOS 87 U/L (45-117)
[2021-08-05 14:20] LABS: INR 1.02 (0.83-1.09); PROTHROMBIN TIME (PATIENT) 11.7 SEC (9.7-13.0)
[2021-08-05 14:23] LABS: ACTIVATED PTT 28.3 SECONDS (25.2-36.5)
[2021-08-05 14:28] LABS: GLUCOSE,RANDOM 414 mg/dL (74-106)
[2021-08-05] MEDS ORDERED: SODIUM CHLORIDE 0.9% 500 ML INFUS.BAG IV ONE (14:32)
[2021-08-05] MEDS ORDERED: INSULIN REGULAR HUMAN 100 UNITS/ML *VIAL SQ ONE (15:18)
[2021-08-05 16:55] VITALS: BP 150/68; PULSE 58; TEMP 97.8
[2021-08-05 17:56] LABS: PH,URINE 5.5 (5.0-8.0); URINE APPEARANCE CLEAR; URINE BILIRUBIN NEGATIVE (NEGATIVE); URINE COLOR YELLOW; URINE GLUCOSE (UA) 3+ (NEGATIVE); URINE KETONE NEGATIVE (NEGATIVE); URINE LEUK ESTERASE NEGATIVE (NEGATIVE); URINE NITRITE NEGATIVE (NEGATIVE); URINE PROTEIN NEGATIVE (NEGATIVE)
== END 2021-08-05 18:49 | disposition home or self-care (01) ==
LOC: JER 11:11
PROC: 3E0333Z Introduction of Anti-inflammatory into Peripheral Vein, Percutaneous Approach (ICD-10-PCS; principal; 2021-08-05)
DX: R53.1 Weakness (principal)
CPT/HCPCS: 0241U-QW; 36415; 70450-TC; 71045-TC-FY; 80053; 81003; 82962; 83735; 84100; 84484; 85025; 85610; 85730; 87086; 93005; 93010; 96374; 99285-25

== ENCOUNTER 2021-12-21 12:18 | Emergency (ER) | payer OTHER ==
[2021-12-21 12:25] VITALS: BP 151/65; PULSE 52; RESP 18; TEMP 97.7; BMI 22.8
[2021-12-21] MEDS ORDERED: SODIUM CHLORIDE 0.9% 500 ML INFUS.BAG IV ONE (12:55)
[2021-12-21] MEDS ORDERED: METOCLOPRAMIDE HCL INJECTION 10 MG/2 ML VIAL IVPUSH ONE (12:55)
[2021-12-21] MEDS ORDERED: KETOROLAC TROMETHAMINE 15 MG/ML VIAL IVPUSH ONE (12:55)
[2021-12-21] MEDS ORDERED: METOCLOPRAMIDE HCL INJECTION 10 MG/2 ML VIAL ONE (13:07)
[2021-12-21] MEDS ORDERED: KETOROLAC TROMETHAMINE 15 MG/ML VIAL ONE (13:08)
[2021-12-21 14:10] LABS: ALBUMIN 4.6 g/dl (3.4-5.0); BILIRUBIN,TOTAL 1.5 mg/dl (0.2-1); CALCIUM 10.6 mg/dl (8.5-10); CREATININE 0.7 mg/dl (0.55-1.3); HEMATOCRIT 49.5 % (32.4-45.2); MCH 29.7 pg (25.7-33.7); MCHC 34.3 g/dl (32.0-36.0); MEAN CELL VOLUME 86.5 fl (80-96); MEAN PLT VOLUME 10.1 fl (7.5-11.1); RBC 5.72 10^6/uL (3.60-5.2); RDW 15.2 % (11.6-15.6); WHITE BLOOD COUNT 8.4 10^3/uL (4.0-10.8)
[2021-12-21] MEDS ORDERED: POTASSIUM CHLORIDE ORAL LIQUID 20 MEQ/15 ML PO ONE (14:18)
[2021-12-21] MEDS ORDERED: POTASSIUM CHLORIDE ORAL LIQUID 20 MEQ/15 ML ONE (14:45)
[2021-12-21 15:20] LABS: PLATELET ESTIMATE ADEQUATE
[2021-12-21 15:25] LABS: EPITHELIAL CELLS MODERATE /hpf; URINE HYALINE CAST 0-2 /lpf
== END 2021-12-21 16:02 | disposition home or self-care (01) ==
LOC: FER 12:18
PROC: 3E033NZ Introduction of Analgesics, Hypnotics, Sedatives into Peripheral Vein, Percutaneous Approach (ICD-10-PCS; principal; 2021-12-21)
PROC: 3E033GC Introduction of Other Therapeutic Substance into Peripheral Vein, Percutaneous Approach (ICD-10-PCS; 2021-12-21)
DX: R51.9 Headache, unspecified (principal)
CPT/HCPCS: 36415; 80053; 81003; 81015; 85025; 87086; 99284-25

== ENCOUNTER 2024-07-20 09:49 | Emergency (ER) | payer OTHER ==
[2024-07-20 10:15] VITALS: RESP 16; BMI 21.2
[2024-07-20 11:01] LABS: ABSOLUTE IMMATURE GRANULOCYTES 0.02 x10^3/uL (0.0-0.031); BASOPHILS # 0.02 x10^3/uL (0.01-0.08); EOSINOPHIL % 0.5 % (0.7-5.8); EOSINOPHILS # 0.02 x10^3/uL (0.04-0.36); HEMATOCRIT 37.5 % (34.1-44.9); HEMOGLOBIN 12.8 g/dL (11.2-15.7); MCHC 34.1 g/dl (32.2-35.5); MEAN CELL VOLUME 86.6 fl (79.4-94.8); MEAN PLT VOLUME 11.8 fl (9.4-12.3); MONOCYTE # 0.43 x10^3/uL (0.24-0.86); MONOCYTE % 11.4 % (4.7-12.5); PLATELET COUNT 148 x10^3/uL (182-369); RDW 14.3 % (12.5-17.0)
[2024-07-20] MEDS ORDERED: ACETAMINOPHEN INJECTION 100 ML ONE (11:17)
[2024-07-20 11:20] LABS: POTASSIUM 4.2 mmol/L (3.5-5.1)
[2024-07-20 11:22] LABS: ALBUMIN 3.3 g/dl (3.4-5.0); BLOOD UREA NITROGEN 9.3 mg/dL (7-18); CALCIUM 10.5 mg/dL (8.5-10.1)
[2024-07-20 11:26] LABS: CREATININE 0.6 mg/dL (0.55-1.3)
[2024-07-20 11:28] LABS: BILIRUBIN,TOTAL 2.3 mg/dL (0.2-1); TOT PROT 6.4 g/dl (6.4-8.2)
[2024-07-20 12:28] LABS: INR 1.07 (0.83-1.09); PROTHROMBIN TIME (PATIENT) 11.7 SEC (9.7-13.0)
[2024-07-20] MEDS: ACETAMINOPHEN 1000 MG/100 ML BAG IVPB ONE (13:13)
[2024-07-20 15:20] LABS: EPI CELLS 5 /uL (0-25.1); HYALINE CASTS 1 /uL (0-3.1); PH,URINE 6.5 (5.0-8.0); URINE APPEARANCE Clear; URINE BACTERIA 144 /uL (0-1359); URINE BILIRUBIN Negative (NEGATIVE); URINE COLOR Yellow; URINE GLUCOSE (UA) Negative (NEGATIVE); URINE KETONE 15 mg/dl (NEGATIVE); URINE LEUK ESTERASE Small (NEGATIVE); URINE NITRITE Negative (NEGATIVE); URINE PROTEIN 30 (NEGATIVE); URINE WBC 513 /uL (0-25.8)
[2024-07-20 15:21] LABS: URINE RBC 245.8 /uL (0-23.9); YEAST PRESENT (NEGATIVE)
[2024-07-20 15:34] VITALS: BP 150/72; PULSE 70; TEMP 97.9
== END 2024-07-20 16:23 ==
LOC: JER 09:49
PROC: 3E033NZ Introduction of Analgesics, Hypnotics, Sedatives into Peripheral Vein, Percutaneous Approach (ICD-10-PCS; principal; 2024-07-20)
DX: M54.6 Pain in thoracic spine (principal); R20.2 Paresthesia of skin; R29.6 Repeated falls; R94.31 Abnormal electrocardiogram [ECG] [EKG]
CPT/HCPCS: 36415; 70450-TC; 71045-TC-FY; 71275-TC; 72125-TC; 72128-TC; 72131-TC; 72170-TC-FY; 74174-TC; 80053; 81003; 84484; 85025; 85610; 85730; 86850; 86900; 86901; 87086; 93005; 93010; 93971-TC; 96374; 99285-25